=== PATIENT | female | born 1995 | race African-American/Black ===

== ENCOUNTER 2019-05-10 17:18 | Emergency (ER) | payer OTHER, SELFPAY ==
[2019-05-10] MEDS ORDERED: NA CHLORIDE 0.9% 1,000 ML ONE (17:51)
[2019-05-10] MEDS ORDERED: ACETAMINOPHEN 500 MG TAB ONE (17:51)
[2019-05-10 18:09] LABS: Urine Blood 1+ (NEG); Urine Glucose NEGATIVE (NEG); Urine Protein NEGATIVE (NEG); Urine Specific Gravity 1.025 (1.005-1.030); Urine pH 5.5 (5.0-7.0)
--- NOTE | 2019-05-10 18:42 | RAD REPORT ---
EXAM DESCRIPTION: US - Transvaginal OB - 05/10/2019 6:35 pm CLINICAL HISTORY: lower abdomen pain Pelvic pain COMPARISON: No comparisons FINDINGS: A single gestational sac is seen within the uterus. The shape of the sac is within normal limits for gestational age. Within the sac is a single pole with crown-rump length of 2.2 cm, c orrelating to estimated gestational age of 8 weeks 5 days. Estimated date of delivery is 12/15/2019. Heart rate is 179 BPM. The placenta is not yet developed due to early gestational age. The maternal adnexa and left ovary are within normal limits. Normal Doppler blood flow was demonstrat ed to the left ovary. The right ovary is obscured by bowel gas. IMPRESSION: Single live early intrauterine gestation with estimated gestational age of 8 weeks 5 day s, ADIS 12/15/2019. No unusual or unexpected finding.
[2019-05-10 18:45] LABS: BUN Blood Urea Nitrogen 9 mg/dL (7-18); Bicarbonate 25 mmol/L (21-32); Glucose Level 81 mg/dL (74-106); HCG, Quantitative 198767 mIU/mL (1-3); Potassium 3.3 mmol/L (3.5-5.1); Sodium Level 136 mmol/L (136-145)
[2019-05-10 19:02] LABS: Absolute Lymphocytes (CBC) 0.8 K/uL (0.7-4.9); Basophils % 0.4 % (0-1.3); Hematocrit 40.3 % (36.0-45.0); Lymphocytes % 9.5 % (15.3-44.8); MPV 9.5 fL (7.6-11.3)
[2019-05-10] MEDS ORDERED: POTASSIUM 25 MEQ EFFERV TAB ONE (19:49)
[2019-05-10 20:41] LABS: Urine Bacteria <20 /HPF (<20); Urine Culture Reflex Order NOT NEEDED; Urine Mucus 2+ /HPF (NONE SEEN)
--- NOTE | 2019-05-10 21:28 | ER ---
Nurse's Notes [facility] Name: Marla Snede Age: 24 yrs Sex: Female : 1995 Arrival Date: 05/10/2019 Time: 17:19 Bed 26 Private MD: Diagnosis: Threatened ; related conditions, unspecified, first trimester Presentation: 05/10 17:22 Presenting complaint: Abdominal pain and scant vaginal bleeding today. Pt is 10 weeks hb , ADIS 11/30/2019. Transition of care: patient was not received from another setting of care. Onset of symptoms was May 10, 2019. Risk Assessment: Do you want to hurt yourself or someone else? Patient reports no desire to harm self or others. Care prior to arrival: None. 17:22 Method Of Arrival: Ambulatory hb 17:22 Acuity: HALEIGH 3 hb 18:23 Initial Sepsis Screen: Does the patient meet any 2 criteria? No. Patient's initial la1 sepsis screen is negative. Does the patient have a suspected source of infection? No. Patient's initial sepsis screen is negative. DISPATCH SPECIALIST: 17:23 2, Full Term 1, Living 1 hb Historical: - Allergies: 17:23 No Known Allergies; hb - Home Meds: 17:23 None [Active]; hb - PMHx: 17:23 None; hb - PSHx: 17:23 None; hb - Immunization history:: Adult Immunizations up to date. - Social history:: Smoking status: Patient/guardian denies using tobacco. - Ebola Screening: : No symptoms or risks identified at this time. Screenin:23 Abuse screen: Denies threats or abuse. Nutritional screening: No deficits noted. la1 Tuberculosis screening: No symptoms or risk factors identified. Fall Risk None identified. Assessment: 18:22 General: Appears in no apparent distress. Behavior is calm, cooperative. Pain: la1 Complains of pain in right lower quadrant and left lower quadrant. Neuro: Level of Consciousness is awake, alert, obeys commands, Oriented to person, place, time, situation. Cardiovascular: Capillary refill < 3 seconds Patient's skin is warm and dry. Respiratory: Airway is patent Respiratory effort is even, unlabored, Respiratory pattern is regular, symmetrical, Breath sounds are clear bilaterally. GI: Bowel sounds present X 4 quads. Abd is soft and non tender X 4 quads. : No signs and/or symptoms were reported regarding the genitourinary system. Vital Signs: 17:23 BP 125 / 75; Pulse 95; Resp 16; Temp 97.8; Pulse Ox 100% on R/A; Weight 58.06 kg; hb Height 5 ft. 4 in. (162.56 cm); Pain 9/10; 19:00 BP 109 / 64; Pulse 56; Resp 15; Pulse Ox 100% ; rv 20:00 BP 112 / 76; Pulse 55; Resp 15; Pulse Ox 100% on R/A; rv 20:30 BP 111 / 64; Pulse 53; Resp 14; Pulse Ox 100% on R/A; rv 21:33 BP 114 / 63; Pulse 62; Resp 16; Temp 98(O); Pulse Ox 100% ; rv 17:23 Body Mass Index 21.97 (58.06 kg, 162.56 cm) hb ED Course: 17:19 Patient arrived in ED. as 17:22 Triage completed. hb 17:23 Arm band placed on. hb 17:25 Jefferson Ivan, LIZZY is Primary Nurse. la1 17:29 Doyle Goodwin PA is PHCP. cp 17:29 Jett Mckeon MD is Attending Physician. cp 18:02 Initial lab(s) drawn, by me, sent to lab. Inserted saline lock: 22 gauge in right lt1 antecubital area, using aseptic technique. 18:23 Patient has correct armband on for positive identification. la1 18:35 US Transvaginal Ob In Process Unspecified. EDMS 21:06 US Abdomen Limited: RUQ In Process Unspecified. EDMS 21:26 Michael Hunt MD is Referral Physician. cp 21:33 No provider procedures requiring assistance completed. IV discontinued, intact, rv bleeding controlled, No redness/swelling at site. Pressure dressing applied. Administered Medications: 18:00 Drug: NS 0.9% 1000 ml Route: IV; Rate: 1 bolus; Site: right antecubital; rv 19:39 Follow up: IV Status: Completed infusion; IV Intake: 1000ml rv 18:05 Drug: Tylenol 1000 mg Route: PO; la1 19:39 Follow up: Response: No adverse reaction; Marked relief of symptoms; Pain is decreased rv 19:58 Drug: Potassium Effervescent Tablet 50 mEq Route: PO; rv 21:32 Follow up: Response: No adverse reaction rv Intake: 19:39 IV: 1000ml; Total: 1000ml. rv Outcome: 21:27 Discharge ordered by . cp 21:33 Discharged to home ambulatory, with family. rv 21:33 Condition: good 21:33 Discharge instructions given to patient, Instructed on discharge instructions, follow up and referral plans. Demonstrated understanding of instructions, follow-up care. 21:34 Patient left the ED. rv Signatures: Dispatcher [employer] Vanessa Beltran Lee, RN RN la1 Doyle Goodwin PA PA Day Walker, RN RN Arun Lowe RN RN Ana María Vital lt1
--- NOTE | 2019-05-10 21:28 | EDPHYS ---
Physician Documentation [facility] Name: Marla Sneed Age: 24 yrs Sex: Female : 1995 Arrival Date: 05/10/2019 Time: 17:19 Bed 26 Private MD: ED Physician Jett Mckeon HPI: 05/10 17:45 This 24 yrs old Black Female presents to ER via Ambulatory with complaints of Abdominal cp Pain - 10 wks preg. 17:45 The patient presents with abdominal pain in the lower abdomen. cp 17:45 Onset: The symptoms/episode began/occurred this morning. cp 17:45 The symptoms do not radiate. Associated signs and symptoms: Pertinent positives: cp vaginal bleeding, Pertinent negatives: constipation, dysuria, fever, hematuria, vomiting. The symptoms are described as constant. Severity of pain: in the emergency department the pain is unchanged despite home interventions. TOP WADDY: 17:23 2, Full Term 1, Living 1 hb Historical: - Allergies: 17:23 No Known Allergies; hb - Home Meds: 17:23 None [Active]; hb - PMHx: 17:23 None; hb - PSHx: 17:23 None; hb - Immunization history:: Adult Immunizations up to date. - Social history:: Smoking status: Patient/guardian denies using tobacco. - Ebola Screening: : No symptoms or risks identified at this time. ROS: 18:00 Constitutional: Negative for body aches, chills, fever, poor PO intake. cp 18:00 Eyes: Negative for injury, pain, redness, and discharge. cp 18:00 ENT: Negative for drainage from ear(s), ear pain, sore throat, difficulty swallowing, difficulty handling secretions. 18:00 Cardiovascular: Negative for chest pain, palpitations. 18:00 Respiratory: Negative for cough, shortness of breath, wheezing. 18:00 Abdomen/GI: Positive for abdominal pain, Negative for nausea, vomiting, diarrhea, constipation, anorexia, black/tarry stool, rectal bleeding. 18:00 : Positive for vaginal bleeding, Negative for urinary symptoms. 18:00 Neuro: Negative for altered mental status, headache, syncope, weakness. 18:00 All other systems are negative. Exam: 18:05 Constitutional: The patient appears in no acute distress, alert, awake, non-toxic, well cp developed, well nourished. 18:05 Head/Face: Normocephalic, atraumatic. cp 18:05 Eyes: Periorbital structures: appear normal, Conjunctiva: normal, no exudate, no injection, Sclera: no appreciated abnormality, Lids and lashes: appear normal, bilaterally. 18:05 ENT: External ear(s): are unremarkable, Nose: is normal, Mouth: Lips: moist, Oral mucosa: pink and intact, moist, Posterior pharynx: is normal, airway is patent, no erythema, no exudate. 18:05 Chest/axilla: Inspection: normal, Palpation: is normal, no crepitus, no tenderness. 18:05 Cardiovascular: Rate: normal, Rhythm: regular. 18:05 Respiratory: the patient does not display signs of respiratory distress, Respirations: normal, no use of accessory muscles, no retractions, no splinting, no tachypnea, labored breathing, is not present, Breath sounds: are clear throughout, no decreased breath sounds, no stridor, no wheezing. 18:05 Abdomen/GI: Inspection: abdomen appears normal, Bowel sounds: active, all quadrants, Palpation: soft, in all quadrants, moderate abdominal tenderness, in the right upper quadrant, right lower quadrant and left lower quadrant, rebound tenderness, is not appreciated, voluntary guarding, is not appreciated. 18:05 Back: pain, is absent, ROM is normal, CVA tenderness, is absent. 18:05 Skin: no rash present. cp Vital Signs: 17:23 BP 125 / 75; Pulse 95; Resp 16; Temp 97.8; Pulse Ox 100% on R/A; Weight 58.06 kg; hb Height 5 ft. 4 in. (162.56 cm); Pain 9/10; 19:00 BP 109 / 64; Pulse 56; Resp 15; Pulse Ox 100% ; rv 20:00 BP 112 / 76; Pulse 55; Resp 15; Pulse Ox 100% on R/A; rv 20:30 BP 111 / 64; Pulse 53; Resp 14; Pulse Ox 100% on R/A; rv 21:33 BP 114 / 63; Pulse 62; Resp 16; Temp 98(O); Pulse Ox 100% ; rv 17:23 Body Mass Index 21.97 (58.06 kg, 162.56 cm) hb MDM: 17:29 Patient medically screened. cp 18:00 Differential diagnosis: Ectopic , non-specific abd pain, Ovarian Torsion, cp Pelvic Inflammatory Disease, Pyelonephritis, Tubal Ovarian Abcess, urinary tract infection. 21:25 Data reviewed: vital signs, nurses notes, lab test result(s), radiologic studies, cp ultrasound, and as a result, I will discharge patient. 21:25 Counseling: I had a detailed discussion with the patient and/or guardian regarding: the cp historical points, exam findings, and any diagnostic results supporting the discharge/admit diagnosis, the need for outpatient follow up, an OB/Gyne specialist, to return to the emergency department if symptoms worsen or persist or if there are any questions or concerns that arise at home. Response to treatment: the patient's symptoms have mildly improved after treatment, and as a result, I will discharge patient. 05/10 17:39 Order name: Quantitative Hcg; Complete Time: 18:49 05/10 18:50 Interpretation: Abnormal: HCGQ [id number]. 05/10 17:39 Order name: Abo/rh Typing; Complete Time: 19:46 05/10 20:27 Interpretation: Reviewed. 05/10 17:39 Order name: Basic Metabolic Panel; Complete Time: 18:49 05/10 20:26 Interpretation: Normal except: K 3.3. 05/10 17:39 Order name: CBC with Diff; Complete Time: 19:46 05/10 20:26 Interpretation: Normal except: SONU% 83.2; LYM% 9.5. 05/10 17:55 Order name: Urine Dipstick--Ancillary (enter results); Complete Time: 18:49 em1 05/10 17:55 Order name: Urine --Ancillary (enter results); Complete Time: 18:49 em1 05/10 17:39 Order name: Urine Test (obtain specimen); Complete Time: 18:03 05/10 17:39 Order name: IV Saline Lock; Complete Time: 18:03 05/10 17:40 Order name: US Transvaginal Ob; Complete Time: 18:49 05/10 19:46 Order name: Urine Microscopic Only; Complete Time: 20:43 05/10 20:36 Order name: US Abdomen Limited: RUQ 05/10 17:39 Order name: Labs collected and sent; Complete Time: 18:03 cp 05/10 17:39 Order name: NPO; Complete Time: 18:03 cp 05/10 17:39 Order name: Urine Dipstick-Ancillary (obtain specimen); Complete Time: 18:03 cp Administered Medications: 18:00 Drug: NS 0.9% 1000 ml Route: IV; Rate: 1 bolus; Site: right antecubital; rv 19:39 Follow up: IV Status: Completed infusion; IV Intake: 1000ml rv 18:05 Drug: Tylenol 1000 mg Route: PO; la1 19:39 Follow up: Response: No adverse reaction; Marked relief of symptoms; Pain is decreased rv 19:58 Drug: Potassium Effervescent Tablet 50 mEq Route: PO; rv 21:32 Follow up: Response: No adverse reaction rv Disposition: 05/10/19 21:27 Discharged to Home. Impression: Threatened , related conditions, unspecified, first trimester. - Condition is Stable. - Discharge Instructions: Abdominal Pain During , Threatened Miscarriage, Vaginal Bleeding During , First Trimester, Pelvic Rest. - Medication Reconciliation Form, Thank You Letter, Antibiotic Education, Prescription Opioid Use form. - Follow up: Michael Hunt MD; When: 2 - 3 days; Reason: Recheck today's complaints. - Problem is new. - Symptoms have improved. Addendum: 05/12/2019 15:35 Co-signature as Attending Physician, Jett Mckeon MD I agree with the assessment and t w4 plan of care. Signatures: Dispatcher [employer] EDAL Jefferson Ivan RN RN la1 Doyle Goodwin PA PA cp Day Black RN RN Jett Mckeon MD MD tw4 Arun Matute RN RN rv Corrections: (The following items were deleted from the chart) 05/10 21:34 21:27 05/10/2019 21:27 Discharged to Home. Impression: Threatened ; rv related conditions, unspecified, first trimester. Condition is Stable. Forms are Medication Reconciliation Form, Thank You Letter, Antibiotic Education, Prescription Opioid Use. Follow up: Michael Hunt; When: 2 - 3 days; Reason: Recheck today's complaints. Problem is new. Symptoms have improved. cp
[2019-05-10 21:53] VITALS: O2SAT 100
[2019-05-10 21:59] VITALS: BP 114/63; TEMP 98
--- NOTE | 2019-05-11 07:03 | RAD REPORT ---
EXAM DESCRIPTION: US - Abdomen Exam Limited - 05/10/2019 9:06 pm CLINICAL HISTORY: RUQ abdomen pain Preliminary findings provided at the time of the study. COMPARISON: No comparisons FINDINGS: No gallstones, sludge or other abnormalities within the gallbladder lumen. There is no wal l thickening or pericholecystic fluid. No common duct stone or biliary tree dilatation identified. IMPRESSION: Normal gallbladder and biliary tree ultrasound.
== END 2019-05-10 21:34 | disposition home or self-care (01) ==
LOC: ER 17:18
DX: O20.0 Threatened abortion (principal); Z3A.10 10 weeks gestation of pregnancy
CPT/HCPCS: 36415; 76705; 76817; 80048; 81003; 81015; 81025; 84702; 85025; 86900; 86901; 96360; 96361; 99284; J7030

== ENCOUNTER 2020-05-10 12:03 | Emergency (ER) | payer OTHER ==
--- OUTSIDE RECORDS SUMMARY | 2020-05-10 12:15 | XMS REPORT | Continuity of Care Document ---
:1995 Author Organization [facility] t Address [address] [place] [address] Care Team Providers Name Role Phone Tu REGALADO Attending Clinician Isaak GOULD, Alon Attending Clinician Problems This patient has no known problems. Allergies, Adverse Reactions, Alerts This patient has no known allergies or adverse reactions. Medications This patient has no known medications. Procedures This patient has no known procedures. Encounters Start End Encounter Admission Attending Care Care Encounter Source Date/Time Date/Time Type Type Clinicians Facility Department ID 2020-05-07 2020-05-07 Urgent Aditya Mae [id number] 17:36:07 17:51:07 Care Dona Pediatric [id number] s and [id number] Adult [id number] Primary [facility] 2020-04-15 2020-04-15 Office Lila Mulligan [id number] 14:44:02 16:12:30 Visit Alon Ceballos [id number] [place] [id number] Professkirk [id number] [address] Results This patient has no known results.
--- OUTSIDE RECORDS SUMMARY | 2020-05-10 12:16 | XMS REPORT | Summary of Care ---
:1995 Author Organization [facility] Address [address] [place] [id number] Care Team Providers Name Role Phone Doctor Unassigned, [place] [employer] Unavailable Pcp, Does Not Have A Primary Care Provider Reason for Visit Reason Comments INTRAUTERINE DEVICE Encounter Details Date Type Department Care Team Description 03/15/2020 Office Visit [facility] MulliganLila MD Encounter for insertion of mirena IUD (P rimary Dx); Healthcare- [address] Presence of of 52 mg levonor gestrel-releasing intrauterine device (IUD); [address] [place] [address] [address] female [address], [address] [place], [place] [id number] [phone] Allergies No Known Allergiesdocumented as of this encounter (statuses as of 03/15/2020) Medications Medication Sig Dispensed Refills Start Date End Date Status vitamin Take 1 tablet 100 tablet 3 12/06/2019 Active w/FA by mouth tabletIndication daily. s: Liveborn , of mccord , born in hospital by vaginal delivery, Late care affecting in third trimester, 39 weeks gestation of , Encounter for elective induction of labor ferrous sulfate Take 1 tablet 60 tablet 2 12/06/2019 Active 325 mg (65 mg by mouth 2 iron) (two) times tabletIndication daily. s: Liveborn , of mccord , born in hospital by vaginal delivery, Late care affecting in third trimester, 39 weeks gestation of , Encounter for elective induction of labor docusate calcium Take 1 60 capsule 1 12/06/2019 D iscontinued 240 mg capsule by 0 (Therapy capsuleIndicatio mouth once co mpleted) ns: Liveborn daily as infant, of needed for mccord Constipation. , born in hospital by vaginal delivery, Late care affecting in third trimester, 39 weeks gestation of , Encounter for elective induction of labor ibuprofen 600 mg Take 1 tablet 30 tablet 1 12/06/2019 03/15/20 2 Discontinued tabletIndication by mouth 0 (Th erapy s: Liveborn every 6 (six) comp leted) , of hours as mccord needed , born (Pain). Take in hospital by with food or vaginal milk. delivery, Late care affecting in third trimester, 39 weeks gestation of , Encounter for elective induction of labor Hospital, Clinic, or Ordered Dose Route Frequency Start Date End D ate Status Other Facility Administered Medication levonorgestreL 1 Device Intrauterine ONCE 03/15/2020 03/15/2020 Ended (MIRENA) IUD 1 Device documented as of this encounter (statuses as of 03/15/2020) Active Problems Problem Noted Date Presence of of 52 mg levonorgestrel-releasing intraute rine device (IUD) 03/15/2020 documented as of this encounter (statuses as of 03/15/2020) Resolved Problems Problem Noted Date Resolved Date 39 weeks gestation of 12/05/2019 01/09/20 20 Encounter for elective induction of labor 12/05/2019 01/09/2020 37 weeks gestation of 10/26/2019 12/05/19 20 Supervision of with insufficient care in 08/17/2019 10/12/2019 second trimester 27 weeks gestation of 08/17/2019 10/12/19 20 Placenta previa without hemorrhage, antepartum 08/17/2019 12/05/2019 Last Assessment & Plan: Resolved on 10/17/2019 USG 17 weeks gestation of 06/22/2019 08/17/19 20 Late care affecting in third trimester 01/09/2020 05/27/2017 06/22/2019 Postmaturity , 40-42 weeks gestation 05/27/2017 06/22/2019 Liveborn , of mccord , born in hospital by 05/27/2017 01/09/2020 vaginal delivery 40 weeks gestation of 05/26/2017 06/22/20 19 Supervision of normal first 11/17/2016 documented as of this encounter (statuses as of 03/15/2020) Immunizations Name Administration Dates Next Due Influenza Virus Vaccine Quad .5 mL IM 6+ MO 06/22/2019 Influenza Virus Vaccine Quad IM 3+ YRS 05/24/2017 TDAP 03/03/2017 TDAP (ADACEL) VACCINE 09/14/2019 documented as of this encounter Social History Tobacco Use Types Packs/Day Years Used Date Never Smoker Smokeless Tobacco: Never Used Alcohol Use Drinks/Week oz/Week Comments No 0 Standard drinks or equivalent 0.0 Sex Assigned at Date Recorded Not on file COVID-19 Exposure Response Date Recorded In the last month, have you been in contact with No / Unsure 03/15/2020 3:30 PM CDT someone who was confirmed or suspected to have Coronavirus / COVID-19? documented as of this encounter Last Filed Vital Signs Vital Sign Reading Time Taken Comments Blood Pressure 119/77 03/15/2020 4:05 PM CDT Pulse 62 03/15/2020 4:05 PM CDT Temperature 36.6 C (97.8 F) 03/15/2020 4:05 PM CDT Respiratory Rate 18 03/15/2020 4:05 PM CDT Oxygen Saturation - - Inhaled Oxygen Concentration - - Weight 60.3 kg (133 lb) 03/15/2020 4:05 PM CDT Height 162.6 cm (5' 4") 03/15/2020 4:05 PM CDT Body Mass Index 22.83 03/15/2020 4:05 PM CDT documented in this encounter Progress Notes Lila Mulligan MD - 03/15/2020 3:30 PM CDTIUD INSERTION PROCEDURE NOTE GC/CT within 3 months: No, sent today Recent H/H: 9.9/30.5 on 12/06/2019 UPT: negative Preoperative Diagnoses: Desires LARC The risks, benefits and alternatives were discussed. The patient voiced her understanding. She wished to proceed and an informed consent was obtained. Patient has been identified with name and and will be undergoing IUD placement. Indications for Mirena are: Desires LARC. Patient, procedure and site have been confirmed by the following clinicians: Dr. Mulligan. Timeout performed by Dr. Mulligan at 5:00 PM. Procedure: The patient is placed on the exam table in a dorsal lithotomy position. Vaginal speculuminserted. The cervix was cleansed with Betadine x 3. The single tooth tenaculum was placed on the anterior lip of the uterus. Uterus sounded to 8 cm. IUD inserted without difficulty. String visible and trimmed to 3 cm. The patient tolerated the procedure well and there were no complications. Post-procedure instructions given. Patient verbalized understanding. Findings Successful placement of Mirena IUD, see USG report Assessment Successful placement of Mirena IUD, ultrasound shows intrauterine fundal position. Plan Encounter for insertion of Mirena IUD Comment: Reviewed counseling as below. Patient expressed understanding of risks including that of uterine perforation, IUD malposition and expulsion, along with risk of migration of IUD into the abdominal cavity requiring surgery for removal. These risks could result in additional expense to the patient. The patient desires to proceed with IUD insertion. Negative UPT and no recent unprotected intercourse. Understands need to use back up method for contraception for next 7 days. Understands needs replacement or removal in 5 years. Plan: TEST, US METAL TURNER TRANSVAGINAL (In Clinic) Presence of of 52 mg levonorgestrel-releasing intrauterine device (IUD) Comment: String check in 4 weeks. Strings trimmed to 3 cm. Plan: US METAL TURNER TRANSVAGINAL (In Clinic) - confirmed placement of IUD with ultrasound. Return to clinic in 4 week string check. Discussed treatment options. Medications as ordered. Reviewed patient instructions and provided printed copy. Mirena Lot #: [id number] Expiration date: 12/2021 Lila Mulligan MD #[id number] 03/15/2020 5:00 PM documented in this encounter Plan of Treatment Date Type Specialty Care Team Description 04/15/2020 Office Visit Obstetrics & Gynecology Greg Mulligan MD [address] [place] [address] [address] [place] [address] [phone] Name Type Priority Associated Diagnoses Order S chedule GC & CHLAMYDIA AMPLIFIED LAB Routine Encounter for in sertion of Ordered: 03/15/2020 ASSAY mirena IUD Health Maintenance Due Date Last Done Comments MENINGOCOCCAL B VACCINES (1 2007 of 2 - Risk Bexsero 2-dose series) HPV VACCINES (1 - 2-dose 2008 series) INFLUENZA VACCINE (#1) 2020 06/22/2019, 05/24/2017 Depression Screening 07/20/2020 07/20/2019 CHLAMYDIA SCREENING 11/22/2020 11/23/2019, 07/20/2019, 06/22/2019, Additional history exists PAP SMEAR 06/22/2022 06/22/2019 DTaP,Tdap,and Td Vaccines (3 09/14/2029 09/14/2019, 017 - Td) MENINGOCOCCAL VACCINE Aged Out No longer eligible based on patient 's age to complete this topic PNEUMOCOCCAL 0-64 YEARS Aged Out No longe r eligible COMBINED SERIES based on patient 's age to complete this topic documented as of this encounter Procedures Procedure Name Priority Date/Time Associated Diagnosis Comme nts POCT TEST Routine 03/15/2020 Encounter for inserti on Results for this of mirena IUD procedure are in the results section . documented in this encounter Results POCT TEST (03/15/2020) Pathologist Sig nature POCT PREG Negative On board controls acceptable Yes with C Line POCT PREG LOT # POCT PREG TEST DATE Specimen Urine - URINE, CLEAN CATCH documented in this encounter Visit Diagnoses Diagnosis Encounter for insertion of mirena IUD - Primary Encounter for insertion of intrauterine contraceptive device Presence of of 52 mg levonorgestrel-rele asing intrauterine device (IUD) Encounter for female control Other specified contraceptive management documented in this encounter Administered Medications Medication Order MAR Action Action Date Dose Rate Site levonorgestreL (MIRENA) IUD 1 Given 03/15/2020 5:02 PM 1 Device Abdomen Device CDT 1 Device, Intrauterine, ONCE, 1 dose, Wed03/15/20 at 1800, Routine documented in this encounter Insurance Payer Benefit Plan / Subscriber ID Effective Phone Address T [facility] [id number] 2016-Fam[address] P.OSally SANCHEZ Medic aid HEALTH CHOICE - HE[place] [id number] 1 MANAGED MEDICAID [place], [place] [phone] documented as of this encounter Advance Directives Name Relationship Healthcare Agent Relationship Co mmunication Rosario Montelongo Mother Health Care Agent [phone] ( Mobile)
--- OUTSIDE RECORDS SUMMARY | 2020-05-10 12:16 | XMS REPORT | Summary of Care ---
:1995 Author Organization [facility] Address [address] [place] [address] Care Team Providers Name Role Phone Doctor Unassigned, [place] Insurance Hmo Unavailable Pcp, Does Not Have A Primary Care Provider Reason for Visit Reason Comments INTRAUTERINE DEVICE Encounter Details Date Type Department Care Team Description 03/15/2020 Office Visit [facility] Women's MulliganLila MD Encounter for insertion of mirena IUD (P rimary Dx); Healthcare- [address] Presence of of 52 mg levonor gestrel-releasing intrauterine device (IUD); [address] [place] [address] [address] female [address], [address] [place], [place] [phone] Allergies No Known Allergiesdocumented as of this [...] removal in 5 years. Plan: TEST, US TASTE TESTER TRANSVAGINAL (In Clinic) Presence of of 52 mg levonorgestrel-releasing intrauterine device (IUD) Comment: String check in 4 weeks. Strings trimmed to 3 cm. Plan: US TASTE TESTER TRANSVAGINAL (In Clinic) - confirmed placement of IUD with ultrasound. Return to clinic in 4 week string check. Discussed treatment options. Medications as ordered. Reviewed patient instructions and provided printed copy. Mirena Lot #: [id number] Expiration date: 12/2021 Lila Mulligan MD #[id number] 03/15/2020 5:00 PM documented in this encounter Plan of Treatment Date Type Specialty Care Team Description 04/15/2020 Office Visit Obstetrics & Gynecology Greg Mulligan MD [address] [place] [address] DR. Briceno [address] [place] [address] [phone] Name Type Priority Associated Diagnoses Order S [...] / Subscriber ID Effective Phone Address T [employer] [id number] 2016-Familia P.OSally SANCHEZ Medic aid HEALTH CHOICE - HEALTH CHOICE nt [id number] 1 MANAGED MEDICAID [place], [place] MED[place]ID [address] documented as of this encounter Advance Directives Name Relationship Healthcare Agent Relationship Co mmunication Rosario Montelongo Mother Health Care Agent [phone] ( Mobile)
--- OUTSIDE RECORDS SUMMARY | 2020-05-10 12:16 | XMS REPORT | Summary of Care ---
:1995 Author Organization [facility] Address [address] [place] [address] Care Team Providers Name Role Phone Doctor Unassigned, [place] Insurance Hmo Unavailable Pcp, Does Not Have A Primary Care Provider Reason for Visit Reason Comments Follow-up string check Encounter Details Date Type Department Care Team Description 04/15/2020 Office Visit [facility] Women's MulliganLila MD Family planning, IUD (intrauterine devic e) check/reinsertion/removal (Primary Dx); Healthcare- [address] Flu vaccine need [address] [place] [address] [address] Saldaña, [address] [place], [place] [phone] Allergies No Known Allergiesdocumented as of this encounter (statuses as of 04/15/2020) Medications Medication Sig Dispensed Refills Start Date End Date Status vitamin w/FA Take 1 tablet by 100 tablet 3 12/06/2019 Active tabletIndications: mouth daily. Liveborn infant, of [place] , born in hospital by vaginal delivery, Late care affecting in third trimester, 39 weeks gestation of , Encounter for elective induction of labor ferrous sulfate 325 mg Take 1 tablet by 60 tablet 2 12/06/2019 Active (65 mg iron) mouth 2 (two) tabletIndications: times daily. Liveborn , of [place] , born in hospital by vaginal delivery, Late care affecting in third trimester, 39 weeks gestation of , Encounter for elective induction of labor documented as of this encounter (statuses as of 04/15/2020) Active Problems Problem Noted Date Presence of of 52 mg levonorgestrel-releasing intraute rine device (IUD) 03/15/2020 documented as of this encounter (statuses as of 04/15/2020) Resolved Problems Problem Noted Date Resolved Date [...] as of this encounter (statuses as of 04/15/2020) Immunizations Name Administration Dates Next Due Influenza Virus Vaccine Quad .5 mL IM 6+ MO 04/15/2020, 11/2018 Influenza Virus Vaccine Quad IM 3+ YRS [...] been in contact with No / Unsure 04/15/2020 2:43 PM CDT someone who was confirmed or suspected to have Coronavirus / COVID-19? documented as of this encounter Last Filed Vital Signs Vital Sign Reading Time Taken Comments Blood Pressure 124/70 04/15/2020 3:13 PM CDT Pulse 71 04/15/2020 3:13 PM CDT Temperature 36.9 C (98.4 F) 04/15/2020 3:13 PM CDT Respiratory Rate 18 04/15/2020 3:13 PM CDT Oxygen Saturation - - Inhaled Oxygen Concentration - - Weight 57.2 kg (126 lb) 04/15/2020 3:13 PM CDT Height 167.6 cm (5' 6") 04/15/2020 3:13 PM CDT Body Mass Index 20.34 04/15/2020 3:13 PM CDT documented in this encounter Progress Notes Lila Mulligan MD - 04/15/2020 3:00 PM CDT CC: IUD string check HPI: Marla Sneed is a 24 year old female IUD placed on 03/15/2020. LMP 04/14/2020. Normal amount of bleeding with period. Able to feel strings after menses. No discomfort with sexual intercourse. ROS: Constitutional: Negative fever, chills Cardiovascular: Negative chest pain Respiratory: Negative SOB Gastrointestinal: Negative abdominal pain, nausea, vomiting Gynecologic: As above PE: BP: (124)/(70) Temp: [36.9 C (98.4 F)] Temp source: Oral (04/15 1513) Pulse: [71] Resp: [18] SpO2: -- Height: [5' 6" (167.6 cm)] Weight: [126 lb (57.2 kg)] BMI (calculated): [20.34] NAD RRR Breathing unlabored Soft, NTTP Speculum exam revealed IUD strings at the external os A/P: IUD (intrauterine device) in place (primary encounter diagnosis) Comment: Self string check reviewed Plan: Return for WWE 6 months and string check Flu vaccine need Plan: FLU VACC([id number]), 6+ MONTHS, IM, QUAD (FLUZONE/FLULAVAL/FLUARIX); Patient received flu shot today Scribe's Attestation Frankie Farley , am scribing for, and in the presence of, Lila Mulligan MD who performed the services described here-in. Frankie Rodriguez, April 15, 2020, 2:59 PM Physician's Attestation I have seen and examined the patient and agreed with the note above Lila Mulligan MD 04/15/2020 6:20 PM documented in this encounter Plan of Treatment Date Type Specialty Care Team Description 10/14/2020 Office Visit Obstetrics & Gynecology Greg Mulligan MD [address] [place] [address] DR. Briceno [address] [place], [place] [address] [phone] Health Maintenance Due Date Last Done Comments MENINGOCOCCAL B VACCINES (1 2007 of 2 - Risk Bexsero 2-dose series) HPV VACCINES (1 - 2-dose 2008 series) INFLUENZA VACCINE (#1) 2020 06/22/2019, 05/24/2017 Depression Screening 07/20/2020 07/20/2019 CHLAMYDIA SCREENING 03/15/2021 03/15/2020, 11/23/2019, 07/20/2019, Additional history exists PAP SMEAR 06/22/2022 06/22/2019 [...] Name Priority Date/Time Associated Diagnosis Comme nts FLU VACC ([id number]), Routine 04/15/2020 4:03 PM CDT Flu vacc ine need 6+ MONTHS, IM, QUAD documented in this encounter Results Not on filedocumented in this encounter Visit Diagnoses Diagnosis Family planning, IUD (intrauterine devic e) check/reinsertion/removal - Primary Surveillance of previously prescribed in trauterine contraceptive device Flu vaccine need Need for prophylactic vaccination and in oculation against influenza documented in this encounter Insurance Payer Benefit Plan / Subscriber ID Effective Phone Address T [facility] [id number] 2016-Prese [address] Medic aid HEALTH CHOICE - HEALTH CHOICE nt [id number] 1 MANAGED MEDICAID [place], [place] MEDICAID [phone] documented as of this encounter Advance Directives Name Relationship Healthcare Agent Relationship Co mmunication Rosario Montelongo Mother Health Care Agent [phone] ( Mobile)
--- OUTSIDE RECORDS SUMMARY | 2020-05-10 12:16 | XMS REPORT | Summary of Care ---
:1995 Author Organization [facility] Address [address] [place] [address] Care Team Providers Name Role Phone Doctor Unassigned, [place] Insurance Hmo Unavailable Pcp, Does Not Have A Primary Care Provider Encounter Details Date Type Department Care Team Description 03/15/2020 Orders Only [email or web address] Doctor Unassigned, No [address] [facility] [place] [address] [address] [place] [address] Allergies No Known Allergiesdocumented as of this encounter (statuses as of 03/21/2020) Medications Medication Sig Dispensed Refills Start Date [...] mouth 2 (two) tabletIndications: times daily. Liveborn infant, of [place] , born in hospital by vaginal delivery, Late care affecting in third trimester, 39 weeks gestation of , Encounter for elective induction of labor documented as of this encounter (statuses as of 03/21/2020) Active Problems Problem Noted Date Presence of of 52 mg levonorgestrel-releasing intraute rine device (IUD) 03/15/2020 documented as of this encounter (statuses as of 03/21/2020) Resolved Problems Problem Noted Date Resolved Date [...] as of this encounter (statuses as of 03/21/2020) Immunizations Name Administration Dates Next Due Influenza [...] of this encounter Last Filed Vital Signs Not on filedocumented in this encounter Plan of Treatment Date Type Specialty Care Team Description 04/15/2020 Office Visit Obstetrics & Gynecology Greg Mulligan MD [address] [place] [address] [address]. [address] [place] [address] [phone] Health Maintenance Due Date Last Done Comments [...] Name Priority Date/Time Associated Diagnosis Comme nts SURVEY DIRECTOR CLINIC ULTRASOUND Routine 03/15/2020 12:01 AM CDT documented in this encounter Results Not on filedocumented in this encounter Insurance Payer Benefit Plan / Subscriber ID Effective Phone Address [facility] [id number] 2016-Familia [address] Medic aid HEALTH CHOICE - HEALTH CHOICE nt [id number] 1 MANAGED MEDICAID [place], [place]ICAID [phone] documented as of this encounter Advance Directives Name Relationship Healthcare Agent Relationship Co mmunication Rosario Montelongo Mother Health Care Agent [phone] ( Mobile)
--- OUTSIDE RECORDS SUMMARY | 2020-05-10 12:16 | XMS REPORT | Summary of Care ---
:1995 Author Organization [facility] Address [address] [place] [address] Care Team Providers Name Role Phone Doctor Unassigned, [place] Insurance Hmo Unavailable Pcp, Does Not Have A Primary Care Provider Reason for Visit Reason Comments Assessment Encounter Details Date Type Department Care Team Description 03/22/[address] [facility] Women's UribeLila MD Assessment Healthcare- [address] [facility] [address] [place] [address] [place] [address] [phone] Allergies No Known Allergiesdocumented as of this encounter (statuses as of 03/26/2020) Medications Medication Sig Dispensed Refills Start Date End Date Status vitamin w/FA Take 1 tablet by 100 tablet 3 12/06/2019 Active tabletIndications: mouth daily. Liveborn , of [place] , born in hospital by vaginal delivery, Late care affecting in third trimester, 39 weeks gestation of , Encounter for elective induction of labor ferrous sulfate 325 mg Take 1 tablet by 60 tablet 2 12/06/2019 Active (65 mg iron) mouth 2 (two) tabletIndications: times daily. Liveborn infant, of [place] , born in hospital by vaginal delivery, Late care affecting in third trimester, 39 weeks gestation of , Encounter for elective induction of labor documented as of this encounter (statuses as of 03/26/2020) Active Problems Problem Noted Date Presence of of 52 mg levonorgestrel-releasing intraute rine device (IUD) 03/15/2020 documented as of this encounter (statuses as of 03/26/2020) Resolved Problems Problem Noted Date Resolved Date [...] , 40-42 weeks gestation 05/27/2017 06/22/2019 Liveborn infant, of [place] , born in hospital by 05/27/2017 01/09/2020 vaginal delivery 40 weeks gestation of 05/26/2017 06/22/20 19 Supervision of normal first 11/17/2016 documented as of this encounter (statuses as of 03/26/2020) Immunizations Name Administration Dates Next Due Influenza [...] Signs Not on filedocumented in this encounter Miscellaneous Notes Telephone Encounter - Katie Christian RN - 03/26/2020 9:29 AM CDTNo answer, left message for patient to return call. Katie Christian RN 03/26/2020 9:29 AM Telephone Encounter - Arnol Thu Jimmy - 03/22/2020 11:48 AM CDTPt states she has a knot on wrist area and would like to speak to DR URIBE. Pt was offered appointmentbut refused until she talks to DR URIBE first she stated. documented in this encounter Plan of Treatment Date Type Specialty Care Team Description 04/15/2020 Office Visit Obstetrics & Gynecology Greg Uribe MD [address] [place] [address] [place] [address] Health Maintenance Due Date Last Done Comments [...] this topic documented as of this encounter Results Not on filedocumented in this encounter Insurance Payer Benefit Plan / Subscriber ID Effective Phone Address [employer] [facility] [id number] 2016-Familia [address] Medic aid HEALTH CHOICE - HEALTH CHOICE nt [phone] 1 MANAGED MEDICAID [place] [phone] documented as of this encounter Advance Directives Name Relationship Healthcare Agent Relationship Co mmunication Rosario Montelongo Mother Health Care Agent [phone] ( Mobile)
--- OUTSIDE RECORDS SUMMARY | 2020-05-10 12:16 | XMS REPORT | Summary of Care ---
:1995 Author Organization [facility] Address [address] [place] [address] Care Team Providers Name Role Phone Doctor Unassigned, [place] Insurance Hmo Unavailable Pcp, Does Not Have A Primary Care Provider Reason for Visit Reason Comments Follow-up string check Encounter Details Date Type Department Care Team Description 04/15/2020 Office Visit [facility] Women's MulliganLila MD Family planning, IUD (intrauterine devic e) check/reinsertion/removal (Primary Dx); Healthcare- [address] Flu vaccine need [address] [place] [address] [address]. Saldaña, [address] [place], [place] [address] [phone] Allergies No Known Allergiesdocumented as of this [...] string check Flu vaccine need Plan: FLU VACC([id number]), 6+ MONTHS, IM, QUAD (FLUZONE/FLULAVAL/FLUARIX); Patient received [...] Visit Obstetrics & Gynecology Greg Mulligan MD [address] [place] [address] [address]. B[address]eno [address] [place], [place] [address] [phone] Health Maintenance Due Date Last Done Comments [...] Date/Time Associated Diagnosis Comme nts FLU VACC ([id number]), Routine 04/15/2020 4:03 PM CDT Flu vacc [...] / Subscriber ID Effective Phone Address T [facility] [id number] 2016-Prese [address] Medic aid HEALTH CHOICE - HEALTH CHOICE nt [phone] 1 MANAGED MEDICAID [place], [place] [phone] documented as of this encounter Advance Directives Name Relationship Healthcare Agent Relationship Co mmunication Rosario Montelongo Mother Health Care Agent [phone] ( Mobile)
--- OUTSIDE RECORDS SUMMARY | 2020-05-10 12:17 | XMS REPORT | Summary of Care ---
:1995 Author Organization [facility] Address [address] [place] [id number] Care Team Providers Name Role Phone Doctor Unassigned, [place] [employer] Unavailable Pcp, Does Not Have A Primary Care Provider Reason for Visit Reason Comments BUMP right wrist. Encounter Details Date Type Department Care Team Description 05/07/2020 Urgent Care [facility] Urgent Unknown, Attending Andre see cyst Care, Dona Mon, [facility] [address] [address] (Primary Dx) [address] [id number] Allergies No Known Allergiesdocumented as of this encounter (statuses as of 05/07/2020) Medications Medication Sig Dispensed Refills Start Date [...] as of this encounter (statuses as of 05/07/2020) Active Problems Problem Noted Date Presence of of 52 mg levonorgestrel-releasing intraute rine device (IUD) 03/15/2020 documented as of this encounter (statuses as of 05/07/2020) Resolved Problems Problem Noted Date Resolved Date 39 weeks gestation of 12/05/2019 01/09/20 Encounter for elective induction of labor 12/05/2019 01/09/2020 37 weeks gestation of 10/26/2019 12/05/19 20 Supervision of with insufficient care in 08/17/2019 10/12/2019 second trimester 27 weeks gestation of 08/17/2019 10/12/19 Placenta previa without hemorrhage, antepartum 08/17/2019 12/05/2019 Last Assessment & Plan: Resolved on 10/17/2019 USG 17 weeks gestation of 06/22/2019 08/17/19 Late care affecting in third trimester 01/09/2020 05/27/2017 06/22/2019 Postmaturity , 40-42 weeks gestation 05/27/2017 06/22/2019 Liveborn , of [place] , born in hospital by 05/27/2017 01/09/2020 vaginal delivery 40 weeks gestation of 05/26/2017 06/22/20 19 Supervision of normal first 11/17/2016 documented as of this encounter (statuses as of 05/07/2020) Immunizations Name Administration Dates Next Due Influenza [...] been in contact with No / Unsure 05/07/2020 5:45 PM CDT someone who was confirmed or suspected to have Coronavirus / COVID-19? documented as of this encounter Last Filed Vital Signs Vital Sign Reading Time Taken Comments Blood Pressure 119/66 05/07/2020 5:46 PM CDT Pulse 58 05/07/2020 5:46 PM CDT Temperature 36.9 C (98.4 F) 05/07/2020 5:46 PM CDT Respiratory Rate 18 05/07/2020 5:46 PM CDT Oxygen Saturation 99% 05/07/2020 5:46 PM CDT Inhaled Oxygen Concentration - - Weight 57.5 kg (126 lb 12.8 oz) 05/07/2020 5:46 PM CDT Height 162.6 cm (5' 4") 05/07/2020 5:46 PM CDT Body Mass Index 21.77 05/07/2020 5:46 PM CDT documented in this encounter Patient Instructions Patient InstructionsElmajaysonDona, FABRICIO - 05/07/2020 5:45 PM CDT Patient Education Ganglion Cyst: Hand A ganglion cyst is a firm, fluid-filled lump that can suddenly appear on the front or back of the wrist or at the base of a finger. They are the most common type of mass or lump on the hand. These cysts grow from normal tissue in the wrist and fingers and range in size from a pea to a peach pit. Although ganglion cysts are common, they dont spread, and they dont become cancerous. They can occurafter an injury, but many times it isnt known why they grow. Ganglion cysts can change in size, and may go away on their own. What are the symptoms of a ganglion cyst? A ganglion cyst is sometimes painful, especially when it first occurs. Constantly using your hand orwrist can make the cyst enlarge and hurt more. Some hand and wrist movements, such as grasping things, may also be difficult. How does a ganglion cyst develop? Your wrist and hand are made up of many small bones that meet at joints. Tendons attach muscles to the bones at the joints. The tendons allow the joints to bend and straighten. Both tendons and joints are lined with tissue called synovium. This tissue makes a thick fluid that keeps the joints and tendons moving easily. Sometimes the tissue balloons out from the joint or tendons and forms a cyst. As the cyst fills with fluid and grows, it appears as a lump you can feel. Where do ganglion cysts occur? A ganglion cyst can occur anywhere on the hand near a joint. Cysts most commonly appear on the back or palm side of the wrist, or on the palm at the base of a finger. Your doctor can usually diagnose acyst by examining the lump. He or she may draw off a little fluid and order an X-ray to rule out other problems. How is a ganglion cyst treated? Your healthcare provider may just watch your ganglion cyst. Many shrink and become painless without treatment. Some disappear altogether. If the cyst is unsightly or painful, or makes it hard for you to use your hand, your healthcare provider can treat it or, if needed, remove it surgically. Nonsurgical treatment To shrink the cyst, your provider may remove (aspirate) the fluid with a needle. If the cyst hurts, your provider may also give you an injection of an anti- inflammatory, such as cortisone, to relieve the irritation. Your hand may then be wrapped to help keep the cyst from recurring. Surgery If the cyst reappears after treatment, your healthcare provider may remove it surgically. A section of the tissue that lines the joint or tendon is removed along with the cyst. This helps prevent another cyst from forming, although recurrence of the cyst is still possible after surgery.Usually, onlyyour hand or arm is numbed, and you can go home a few hours after surgery. Your hand may be in a splint for several days. You can usually go back to your normal activities 2 to6 weeks after surgery. Digital Assent reviewed this educational content on 04/18/201919996494-1985 [employer]. [address] [place] [address], [place] [address]. All rights reserved. This information is not intended as a substitute for professional medical care. Always follow your healthcare professional's instructions. documented in this encounter Progress Notes Dona Mae FNP - 05/07/2020 5:45 PM CDT Cc: BUMP (right wrist. ) Marla Sneed is a 25 year old female. Patient reports a knot to her right hand for 2 months off and on. Patient denies injury to hand, denies repetitive motion of her hand. No motor or sensory change. No pain at present. HPI Allergies Marla has No Known Allergies. Medications Outpatient Medications Prior to Visit Medication Sig Dispense Refill ferrous sulfate 325 mg (65 mg iron) tablet Take 1 tablet by mouth 2 (two) times daily. 60 tablet2 vitamin w/FA tablet Take 1 tablet by mouth daily. 100 tablet 3 No facility-administered medications prior to visit. Histories No past medical history on file. Past Surgical History: Procedure Laterality Date KELOID EXCISION 2012 right shoulder Social History Socioeconomic History Marital status: Single Spouse name: Not on file Number of children: Not on file Years of education: Not on file Highest education level: Not on file Occupational History Not on file Social Needs Financial resource strain: Not on file Food insecurity Worry: Not on file Inability: Not on file Transportation needs Medical: Not on file Non-medical: Not on file Tobacco Use Smoking status: Never Smoker Smokeless tobacco: Never Used Substance and Sexual Activity Alcohol use: No Alcohol/week: 0.0 standard drinks Drug use: No Sexual activity: Yes Partners: Male Lifestyle Physical activity Days per week: Not on file Minutes per session: Not on file Stress: Not on file Relationships Social connections Talks on phone: Not on file Gets together: Not on file Attends baptist service: Not on file Active member of club or organization: Not on file Attends meetings of clubs or organizations: Not on file Relationship status: Not on file Intimate partner violence Fear of current or ex partner: Not on file Emotionally abused: Not on file Physically abused: Not on file Forced sexual activity: Not on file Other Topics Concern Not on file Social History Narrative Denies domestic violence or abuse Family History Problem Relation Age of Onset No Significant Medical Problems Mother No Significant Medical Problems Father No Significant Medical Problems Sister No Significant Medical Problems Brother Cancer Maternal Aunt No Significant Medical Problems Maternal Uncle No Significant Medical Problems Paternal Aunt Diabetes Maternal Grandmother Cancer Maternal Grandfather No Significant Medical Problems Paternal Grandmother No Significant Medical Problems Paternal Grandfather Breast Cancer Maternal Aunt Review of Systems ROS: Constitutional: denies appetite changes - denies chills, denies fatigue, denies fever , denies malaise , denies sweats, denies weakness, denies weight gain and denies weight loss. Eyes: denies blurry vision, denies decreased vision, denies eye pain, denies loss of vision and denies photophobia. Ears: negative for ear pressure or fullness, no ear pain, negative for difficulty hearing or ear drainage Nose/Sinuses: denies congestion, denies facial pain, denies itching, denies postnasal drip and denies rhinorrhea . Mouth/Throat: denies dysphagia, denies hoarseness, denies mouth pain and denies sore throat. Neck: denies pain, denies swollen glands Cardiovascular: denies chest pain and denies palpitations. Respiratory: denies chest congestion, denies cough , denies dyspnea on exertion and denies shortnessof breath. Gastrointestinal: denies abdominal pain, denies constipation, denies diarrhea and denies vomiting. Genitourinary: denies burning, denies dysuria and denies hematuria. Musculoskeletal: denies back pain, denies joint pain, denies joint swelling, denies muscle cramps and denies muscle pain. Skin: negative. Neuro: negative. Hem/Lymph: negative. Physical Exam BP 119/66 | Pulse 58 | Temp 36.9 C (98.4 F) (Oral) | Resp 18 | Ht 5' 4" (1.626 m) | Wt 126 lb 12.8 oz (57.5 kg) | LMP 2020 | SpO2 99% | BMI 21.77 kg/m PHYSICAL EXAM Appearance: patient alert and in no acute distress Head: normocephalic and atraumatic Eye: normal external eye, corneas clear, conjunctiva and sclera normal and pupils equal, round, reactive to light and accomodation Cardiovascular: regular rate and rhythm, no murmur Respiratory: clear to auscultation and percussion, bilaterally Lymphatic: non-palpable nodes in neck, clavicular, axillary or inguinal regions Extremities: peripheral pulses and reflexes normal, no edema Neurologic: normal gait Psychiatric: alert, oriented, with appropriate affect Skin: skin color, texture and turgor are normal; no bruising, rashes or lesions noted Right hand dorsum with pea size cystic mass noted overlying the 4th metacarpal proximally, non tender to palpation, motor 5/5, sensory wnl Assessment/Plan 1. Ganglion cyst Supportive care Refer to educational handout Management plans discussed with patient. All potential side effects of medication discussed. Patient verbalizes understanding. Patient advised to return to clinic or to the nearest Emergency room should conditions worsen. We recommend you call your primary care provider for an appointment in 1-2 days. If the office is closed and you and you are feeling markedly worse, the [facility] urgent care clinic is open weeknights from 6 pm to 10 pm and on weekends, or you can the [facility] access center for advice 24 hours a day. Yamile Perdomo - 05/07/2020 5:45 PM CDTSmarli Sneed is a 25 year old female complains of small bump to right wrist X 2 months. Patient states it comes and goes and when it comes it is painful with slight redness and limited motion to thewrist. Patient denies taking anything for pain. Patient denies any pain today but when it comes it is a 6/10. documented in this encounter Plan of Treatment Date Type Specialty Care Team Description 10/14/2020 Office Visit Obstetrics & Gynecology Greg Mulligan MD [address] [place] [address] DR. Briceno [address] [place] [phone] Health Maintenance Due Date Last Done Comments MENINGOCOCCAL B VACCINES (1 2007 of 2 - Risk Bexsero 2-dose series) HPV VACCINES (1 - 2-dose 2008 series) Depression Screening 07/20/2020 07/20/2019 CHLAMYDIA SCREENING 03/15/2021 03/15/2020, 11/23/2019, 07/20/2019, Additional history exists PAP SMEAR 06/22/2022 06/22/2019 DTaP,Tdap,and Td Vaccines (3 09/14/2029 09/14/2019, 017 - Td) INFLUENZA VACCINE Completed 04/15/2020, 06/22/2019, 05/24/2017 PNEUMOCOCCAL 0-64 YEARS Aged Out No longe r eligible COMBINED SERIES based on patient 's age to complete this topic documented as of this encounter Results Not on filedocumented in this encounter Visit Diagnoses Diagnosis Ganglion cyst - Primary Ganglion, unspecified documented in this encounter Insurance Payer Benefit Plan / Subscriber ID Effective Phone Address T e Group [facility] [id number] 2016-Familia P.Tabitha SANCHEZ Medic aid HEALTH CHOICE - [place] [id number] 1 MANAGED MEDICAID [place], [place] MED[place] [id number] documented as of this encounter Advance Directives Name Relationship Healthcare Agent Relationship Co mmunication Rosario Montelongo Mother Health Care Agent [phone] ( Mobile)
--- NOTE | 2020-05-10 13:59 | RAD REPORT ---
EXAM DESCRIPTION: RAD - Wrist Right 3 View - 05/10/2020 1:50 pm CLINICAL HISTORY: intermittent pain, "bump", area of concern not further localized COMPARISON: <Comparisons> FINDINGS: No fracture is identified. There is no dislocation or periosteal reaction noted. Epiphyses and growth plates are normal in appearance. No foreign body or calcification in the soft tissues. No focal soft tissue mass identifiable. IMPRESSION: Negative right wrist examination. Focal soft tissue mass not identifiable. No calcification or foreign body in the soft tissues.
[2020-05-10] MEDS ORDERED: IBUPROFEN 400 MG TAB ONE (14:26)
[2020-05-10] MEDS ORDERED: IBUPROFEN 200 MG TAB PO ONE (14:26)
--- NOTE | 2020-05-10 14:49 | RAD REPORT ---
EXAM DESCRIPTION: US - Extremity Nonvascular Limited - 05/10/2020 2:37 pm CLINICAL HISTORY: knot right wrist;Pain COMPARISON: No comparisons FINDINGS: Limited soft tissue sonography performed of a palpable mass at the right wrist. A 7 x 3 x 6 mm oval hypoechoic mass is present in the soft tissues correlate to the palpable abnormal ity. Long axis is parallel to the bones. Ganglion cyst is the most likely etiology. IMPRESSION: A 7 mm oval hypoechoic mass is identified as a correlate to the palpable abnormality. Ga nglion cyst is most likely.
--- NOTE | 2020-05-10 14:58 | EDPHYS ---
Physician Documentation [facility] Name: Marla Sneed Age: 25 yrs Sex: Female : 1995 Arrival Date: 05/10/2020 Time: 12:06 Bed 6 Private MD: ED Physician Delonte Gurrola HPI: 05/10 15:17 This 25 yrs old Black Female presents to ER via Ambulatory with complaints of Wrist kb Injury, Knot On Wrist. 15:17 The patient or guardian reports pain. The complaints affect the right wrist diffusely. kb Context: The problem was sustained at home, resulted from an unknown cause. Onset: The symptoms/episode began/occurred 3 day(s) ago. Modifying factors: The symptoms are alleviated by nothing, the symptoms are aggravated by movement. Associated signs and symptoms: The patient has no apparent associated signs or symptoms. The patient has not experienced similar symptoms in the past. The patient has not recently seen a physician. 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 - Social history:: Smoking status: Patient denies any tobacco usage or history of. ROS: 15:15 Constitutional: Negative for fever, chills, and weight loss, Cardiovascular: Negative kb for chest pain, palpitations, and edema, Respiratory: Negative for shortness of breath, cough, wheezing, and pleuritic chest pain, Abdomen/GI: Negative for abdominal pain, nausea, vomiting, diarrhea, and constipation, Back: Negative for injury and pain, Skin: Negative for injury, rash, and discoloration, Neuro: Negative for headache, weakness, numbness, tingling, and seizure. 15:15 MS/extremity: Positive for pain, of the right wrist, knot. Exam: 15:15 Constitutional: This is a well developed, well nourished patient who is awake, alert, kb and in no acute distress. Head/Face: Normocephalic, atraumatic. Chest/axilla: Normal chest wall appearance and motion. Nontender with no deformity. No lesions are appreciated. Cardiovascular: Regular rate and rhythm with a normal S1 and S2. No gallops, murmurs, or rubs. Normal PMI, no JVD. No pulse deficits. Respiratory: Lungs have equal breath sounds bilaterally, clear to auscultation and percussion. No rales, rhonchi or wheezes noted. No increased work of breathing, no retractions or nasal flaring. Abdomen/GI: Soft, non-tender, with normal bowel sounds. No distension or tympany. No guarding or rebound. No evidence of tenderness throughout. Skin: Warm, dry with normal turgor. Normal color with no rashes, no lesions, and no evidence of cellulitis. Neuro: Awake and alert, GCS 15, oriented to person, place, time, and situation. Cranial nerves II-XII grossly intact. Motor strength 5/5 in all extremities. Sensory grossly intact. Cerebellar exam normal. Normal gait. 15:15 Musculoskeletal/extremity: Extremities: grossly normal except: noted in the right wrist: tenderness, ganglion cyst, ROM: limited active range of motion due to pain, in the right wrist, Circulation is intact in all extremities. Sensation intact. Vital Signs: 12:13 BP 136 / 87; Pulse 64; Resp 14; Temp 98.6(TE); Pulse Ox 95% on R/A; Weight 58.97 kg; ss Height 5 ft. 4 in. (162.56 cm); Pain 8/10; 12:13 Body Mass Index 22.31 (58.97 kg, 162.56 cm) MDM: 14:01 Patient medically screened. kb 15:15 Data reviewed: vital signs, nurses notes. Data interpreted: Pulse oximetry: on room air kb is 95 %. Interpretation: normal. 15:16 Counseling: I had a detailed discussion with the patient and/or guardian regarding: the kb historical points, exam findings, and any diagnostic results supporting the discharge/admit diagnosis, radiology results, the need for outpatient follow up, a family practitioner, to return to the emergency department if symptoms worsen or persist or if there are any questions or concerns that arise at home. 05/10 12:39 Order name: XRAY Wrist RIGHT 3 view; Complete Time: 14:02 ss 05/10 14:07 Order name: US Extrmty Nonvasular Limited; Complete Time: 14:56 kb 05/10 14:57 Order name: Gian Wrap; Complete Time: 15:06 kb Administered Medications: 14:15 Drug: Ibuprofen 600 mg Route: PO; em Disposition: 15:49 Co-signature as Attending Physician, Delonte Gurrola MD I agree with the assessment and kdr plan of care. Disposition: 05/10/20 14:57 Discharged to Home. Impression: Ganglion, right wrist - cyst. - Condition is Stable. - Discharge Instructions: Ganglion Cyst. - Medication Reconciliation Form, Thank You Letter, Antibiotic Education, Prescription Opioid Use form. - Follow up: Emergency Department; When: As needed; Reason: Worsening of condition. Follow up: Private Physician; When: 2 - 3 days; Reason: Recheck today's complaints, Continuance of care, Re-evaluation by your physician. Signatures: Dispatcher [employer] EDAysha Gutiérrez, FABRICIO-C DINKEY ENGINE FIRER/FIREMAN-Elsie Gurrola RN RN Delonte Prather MD MD [facility] Adonis Watson RN RN Lora Crowe RN RN ss Corrections: (The following items were deleted from the chart) 15:24 14:57 05/10/2020 14:57 Discharged to Home. Impression: Ganglion, right wrist - cyst. sv Condition is Stable. Forms are Medication Reconciliation Form, Thank You Letter, Antibiotic Education, Prescription Opioid Use. Follow up: Emergency Department; When: As needed; Reason: Worsening of condition. Follow up: Private Physician; When: 2 - 3 days; Reason: Recheck today's complaints, Continuance of care, Re-evaluation by your physician. kb
--- NOTE | 2020-05-10 14:58 | ER ---
Nurse's Notes [facility] Name: Marla Sneed Age: 25 yrs Sex: Female : 1995 Arrival Date: 05/10/2020 Time: 12:06 Bed 6 Private MD: Diagnosis: Ganglion, right wrist-cyst Presentation: 05/10 12:13 Chief complaint: Patient states: knot to R wrist x 2 months with intermittent pain. ss Coronavirus screen: Client denies travel out of the [place] in the last 14 days. Ebola Screen: Patient denies exposure to infectious person. Patient denies travel to an Ebola-affected area in the 21 days before illness onset. Initial Sepsis Screen: Does the patient meet any 2 criteria? No. Patient's initial sepsis screen is negative. Does the patient have a suspected source of infection? No. Patient's initial sepsis screen is negative. Risk Assessment: Do you want to hurt yourself or someone else? Patient reports no desire to harm self or others. Onset of symptoms is unknown. 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 - Social history:: Smoking status: Patient denies any tobacco usage or history of. Screenin:04 Abuse screen: Denies threats or abuse. Nutritional screening: No deficits noted. em Tuberculosis screening: No symptoms or risk factors identified. Fall Risk None identified. Assessment: 14:09 General: Appears in no apparent distress. comfortable, Behavior is calm, cooperative, em appropriate for age. Pain: Complains of pain in right wrist Pain currently is 8 out of 10 on a pain scale. Pain began 1 day ago. Neuro: Level of Consciousness is awake, alert, obeys commands, Oriented to person, place, time, situation, Appropriate for age. Cardiovascular: Capillary refill < 3 seconds Patient's skin is warm and dry. Respiratory: Airway is patent Respiratory effort is even, unlabored, Respiratory pattern is regular, symmetrical. GI: Derm: Skin is intact, is healthy with good turgor, Skin is pink, warm \T\ dry. Musculoskeletal: Capillary refill < 3 seconds, Range of motion: intact in all extremities. 14:24 Reassessment: US at bedside. em Vital Signs: 12:13 BP 136 / 87; Pulse 64; Resp 14; Temp 98.6(TE); Pulse Ox 95% on R/A; Weight 58.97 kg; Height 5 ft. 4 in. (162.56 cm); Pain 8/10; 12:13 Body Mass Index 22.31 (58.97 kg, 162.56 cm) ED Course: 12:06 Patient arrived in ED. bp1 12:14 Triage completed. ss 12:15 Arm band placed on left wrist. ss 13:04 Aysha Peterson [facility]-C [facility] kb 13:04 Delonte Gurrola MD is Attending Physician. kb 13:50 XRAY Wrist RIGHT 3 view In Process Unspecified. EDMS 14:04 Adonis Watson, RN is Primary Nurse. em 14:04 Patient has correct armband on for positive identification. Bed in low position. Call em light in reach. 14:37 US Extrmty Nonvasular Limited In Process Unspecified. EDMS 15:04 Gian wrap to right wrist. dh3 Administered Medications: 14:15 Drug: Ibuprofen 600 mg Route: PO; em Outcome: 14:57 Discharge ordered by . kb 15:24 Patient left the ED. sv Signatures: Dispatcher [employer] EDIA Aysha Peterson FNP-C FNP-Ckb Verde, Stephanie, RN RN Adonis Watson, Lora Ocasio RN, RN RN Michelle Monroe 3 Sonia Hollis bp1
[2020-05-10 16:16] VITALS: BP 136/87; TEMP 98.6; O2SAT 95
== END 2020-05-10 15:24 | disposition home or self-care (01) ==
LOC: ER 12:03
DX: M67.431 Ganglion, right wrist (principal)
CPT/HCPCS: 76882; 99283

== ENCOUNTER 2021-02-23 16:36 | Emergency (ER) | payer OTHER ==
--- OUTSIDE RECORDS SUMMARY | 2021-02-23 16:38 | XMS REPORT | Continuity of Care Document ---
:1995 Author Organization [facility] t Address [address] [place] [address] Care Team Providers Name Role Phone Elvis Reyna MD Attending Clinician Yulia GOULD Attending Clinician Problems This patient has no known problems. Allergies, Adverse Reactions, Alerts This patient has no known allergies or adverse reactions. Medications This patient has no known medications. Procedures This patient has no known procedures. Encounters Start End Encounter Admission Attending Care Care Encounter Source Date/Time Date/Time Type Type Clinicians Facility Department ID 2021-02-11 2021-02-11 Telephone Benny [facility] [id number] 00:00:00 00:00:00 ent, Jose Maria SPECIALTY [id number] [facility] [id number] CENTER AT [id number] [address] [facility] 2021-02-10 2021-02-10 Telephone BRENDEN Bender [id number] 00:00:00 00:00:00 Dona BOUCHER [id number] [facility] [id number] Results This patient has no known results.
[2021-02-23 20:08] LABS: Urine Blood 2+ (Negative); Urine Glucose Negative (Negative); Urine Protein 2+ (Negative); Urine Specific Gravity >=1.030 (1.005-1.030)
[2021-02-23] MEDS ORDERED: NA CHLORIDE 0.9% 1,000 ML ONE (20:40)
[2021-02-23] MEDS ORDERED: ONDANSETRON 4 MG/2 ML VIAL ONE (20:40)
[2021-02-23] MEDS ORDERED: MORPHINE 4 MG/ML SYR ONE (20:40)
[2021-02-23 21:03] LABS: Absolute Lymphocytes (CBC) 0.7 K/uL (0.7-4.9); Basophils % 0.2 % (0-1.3); Hematocrit 38.8 % (36.0-45.0); MPV 9.2 fL (7.6-11.3); RBC Red Blood Cell Count 4.26 M/uL (3.86-4.86)
--- NOTE | 2021-02-23 21:06 | RAD REPORT ---
EXAM DESCRIPTION: CTAbdomen Pelvis W Contrast - 02/23/2021 8:53 pm CLINICAL HISTORY: Abdominal pain. ABD PAIN COMPARISON: No comparisonsNo comparisons TECHNIQUE: Biphasic CT imaging of the abdomen and pelvis was performed with 100 ml non-ionic IV cont rast. All CT scans are performed using dose optimization technique as appropriate and may include automated exposure control or mA/KV adjustment according to patient size. FINDINGS: The lung bases are clear. No focal liver lesions are identified. Sludge versus noncalcified stones are present within the gallb ladder. Bilateral renal calculi are noted. No ureteral calculi. There is diffuse fluid filled small b owel. No definite bowel obstruction. The IUD appears out of place within the lower uterine segment. T he appendix is not confidently identified. The bladder is decompressed however the bladder wall does appear thickened. Stranding is present within the prevesical space. No suspicious bony findings. IMPRESSION: Nonspecific fluid filled small bowel and colon could represent a mild enterocolitis. The IUD appears to be within the lower uterine segment, out of place. It needs to be removed and/or r epositioned. Nonobstructive nephrolithiasis.
[2021-02-23 21:16] LABS: Albumin 3.2 g/dL (3.4-5.0); Bilirubin Direct 0.2 mg/dL (0-0.2); Bilirubin Total 0.8 mg/dL (0.2-1.0); Potassium 3.1 mmol/L (3.5-5.1); Protein, Total 7.6 g/dL (6.4-8.2)
[2021-02-23 21:28] LABS: Urine Specific Gravity/Preg >1.030 (1.005-1.030)
[2021-02-23 21:57] LABS: Urine Bacteria <20 /HPF (<20); Urine RBC <5 /HPF (NONE SEEN)
--- NOTE | 2021-02-23 22:11 | ER ---
Nurse's Notes [facility] Name: Marla Sneed Age: 25 yrs Sex: Female : 1995 Arrival Date: 02/23/2021 Time: 16:37 Bed 11 Private MD: Diagnosis: Urinary tract infection. Gastroenteritis. IUD displaced Presentation: 02/23 16:46 Chief complaint: Patient states: Epigastric, left and right lower abdominal pain x 2 jl7 days, went to [facility] yesterday and they did a CT, blood work and urine but didn't find anything. The prescribed Zofran but I'm not nauseous or anything, denies N/V/D, last BM Wednesday and normal; denies burning and pain with urination. Coronavirus screen: Client denies travel out of the [place] in the last 14 days. At this time, the client does not indicate any symptoms associated with coronavirus-19. Ebola Screen: No symptoms or risks identified at this time. Initial Sepsis Screen: Does the patient meet any 2 criteria? No. Patient's initial sepsis screen is negative. Does the patient have a suspected source of infection? No. Patient's initial sepsis screen is negative. Risk Assessment: Do you want to hurt yourself or someone else? Patient reports no desire to harm self or others. Onset of symptoms was February 21, 2021. 16:46 Method Of Arrival: Wheelchair [facility] 16:46 Acuity: HALEIGH 3 7 FIELD RECORDER: 16:51 LMP 02/22/2021 [facility] Historical: - Allergies: 16:51 No Known Allergies; jl7 - Home Meds: 16:51 None [Active]; jl7 - PMHx: 16:51 None; jl7 - Immunization history:: Adult Immunizations not up to date, Client reports having NOT received the Covid vaccine. - Social history:: Smoking status: Patient denies any tobacco usage or history of. Screenin:00 Abuse screen: Denies threats or abuse. Nutritional screening: No deficits noted. bb Tuberculosis screening: No symptoms or risk factors identified. Fall Risk None identified. Assessment: 20:00 General: Appears in no apparent distress. slender, Behavior is calm, cooperative. Pain: bb Complains of pain in abdomen. Neuro: Level of Consciousness is awake, alert, obeys commands, Oriented to person, place, time, situation. Cardiovascular: Capillary refill < 3 seconds Patient's skin is warm and dry. Respiratory: Respiratory effort is even, unlabored, Respiratory pattern is regular. GI: Bowel sounds present X 4 quads. Abd is soft X 4 quads. Derm: Skin is dry, Skin is normal, Skin temperature is warm. Musculoskeletal: Circulation, motion, and sensation intact. 22:20 Reassessment: Patient is alert, oriented x 3, equal unlabored respirations, skin bb warm/dry/pink. verbalized understanding of and agrees to plan of care discharge instructions given pt ambulated with steady gait to exit accompanied by family. Vital Signs: 16:46 BP 111 / 85; Pulse 129; Resp 17; Temp 98.6(O); Pulse Ox 100% ; Weight 52.16 kg; Height jl7 5 ft. 4 in. (162.56 cm); Pain 5/10; 22:25 BP 126 / 73 LA Sitting (auto/reg); Pulse 91; Resp 18; Temp 98.1(TE); Pulse Ox 98% on tt3 R/A; Pain 0/10; 16:46 Body Mass Index 19.74 (52.16 kg, 162.56 cm) jl7 ED Course: 16:37 Patient arrived in ED. as 16:51 Triage completed. jl7 16:51 Arm band placed on right wrist. jl7 19:42 Stewart Mulligan MD is Attending Physician. pkl 20:00 Patient has correct armband on for positive identification. Call light in reach. Side bb rails up X2. Adult w/ patient. Warm blanket given. 20:36 Isha Carrera, LIZZY is Primary Nurse. bb 20:53 CT Abd/Pelvis - IV Contrast Only In Process Unspecified. EDMS 21:30 Initial lab(s) drawn, by me, sent to lab. Inserted saline lock: 20 gauge in right bb antecubital area, using aseptic technique. Blood collected. 22:20 No provider procedures requiring assistance completed. bb 22:31 IV discontinued, intact, bleeding controlled, No redness/swelling at site. Pressure bb dressing applied. Administered Medications: 20:30 Drug: NS 0.9% 1000 ml Route: IV; Rate: 1000 ml; Site: right antecubital; bb 21:30 Follow up: IV Status: Completed infusion; IV Intake: 1000ml bb 20:30 Drug: Zofran (Ondansetron) 4 mg Route: IVP; Site: right antecubital; bb 21:30 Follow up: Response: No adverse reaction bb 20:33 Drug: morphine 4 mg {Note: RASS 0.} Route: IVP; Site: right antecubital; bb 21:30 Follow up: Response: No adverse reaction; Pain is decreased bb 22:15 CANCELLED (Physician Discretion): NS 0.9% 1000 ml IV at 125 ml/hr continuous bb 22:15 Drug: Cipro (ciprofloxacin) 500 mg Route: PO; bb 22:17 Follow up: Response: Medication administered at discharge. bb 22:15 Drug: K-Dur (potassium chloride) 40 mEq Route: PO; bb 22:17 Follow up: Response: Medication administered at discharge. bb Intake: 21:30 IV: 1000ml; Total: 1000ml. bb Outcome: 22:11 Discharge ordered by . gina 22:31 Discharged to home ambulatory, with family. bb 22:31 Condition: stable 22:31 Discharge instructions given to patient, Instructed on discharge instructions, follow up and referral plans. medication usage, Demonstrated understanding of instructions, follow-up care, medications, Prescriptions given X 1. 22:31 Patient left the ED. bb Signatures: Dispatcher [employer] Stewart Escalera MD MD pkl Martinez, Amelia as Ballard, Brenda, RN RN Nolberto Garcia RN RN jl7 Jennifer, Mario tt3
--- NOTE | 2021-02-23 22:12 | EDPHYS ---
Physician Documentation [facility] Name: Marla Sneed Age: 25 yrs Sex: Female : 1995 Arrival Date: 02/23/2021 Time: 16:37 Bed 11 Private MD: ED Physician Stewart Mulligan HPI: 02/23 19:59 This 25 yrs old Black Female presents to ER via Wheelchair with complaints of Abdominal pkl Pain. 19:59 The patient presents with abdominal pain in the lower abdomen. Onset: The pkl symptoms/episode began/occurred 2 day(s) ago. The symptoms do not radiate. Associated signs and symptoms: none. Patient seen at [facility] ) yesterday, Had CT Scan, blood and urine tests. Told tests checked out good. Patient said pain not better. 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 - Social history:: Smoking status: Patient denies any tobacco usage or history of. ROS: 19:59 Eyes: Negative for injury, pain, redness, and discharge, ENT: Negative for injury, pkl pain, and discharge, Neck: Negative for injury, pain, and swelling, Cardiovascular: Negative for chest pain, palpitations, and edema, Respiratory: Negative for shortness of breath, cough, wheezing, and pleuritic chest pain. 19:59 Abdomen/GI: Positive for abdominal pain, of the right lower quadrant and left lower quadrant. 19:59 Back: Negative for acute changes. 19:59 : Negative for urinary symptoms. 19:59 MS/extremity: Negative for acute changes. 19:59 Skin: Negative for rash. 19:59 Neuro: Negative for altered mental status, loss of consciousness. Exam: 19:59 Head/Face: Normocephalic, atraumatic. Eyes: Pupils equal round and reactive to light, pkl extra-ocular motions intact. Lids and lashes normal. Conjunctiva and sclera are non-icteric and not injected. Cornea within normal limits. Periorbital areas with no swelling, redness, or edema. ENT: Nares patent. No nasal discharge, no septal abnormalities noted. Tympanic membranes are normal and external auditory canals are clear. Oropharynx with no redness, swelling, or masses, exudates, or evidence of obstruction, uvula midline. Mucous membranes moist. Neck: Trachea midline, no thyromegaly or masses palpated, and no cervical lymphadenopathy. Supple, full range of motion without nuchal rigidity, or vertebral point tenderness. No Meningismus. Chest/axilla: Normal chest wall appearance and motion. Nontender with no deformity. No lesions are appreciated. Cardiovascular: Regular rate and rhythm with a normal S1 and S2. No gallops, murmurs, or rubs. Normal PMI, no JVD. No pulse deficits. Respiratory: Lungs have equal breath sounds bilaterally, clear to auscultation and percussion. No rales, rhonchi or wheezes noted. No increased work of breathing, no retractions or nasal flaring. 19:59 Abdomen/GI: Bowel sounds: normal, Palpation: soft, mild abdominal tenderness, in the right lower quadrant and left lower quadrant. 19:59 Back: Exam negative for acute changes. 19:59 : Exam negative for acute changes. 19:59 Musculoskeletal/extremity: Exam is negative for acute changes. 19:59 Skin: Exam negative for rash. 19:59 Neuro: Orientation: is normal, Mentation: is normal, Cranial nerves: grossly normal, Motor: is normal. Vital Signs: 16:46 BP 111 / 85; Pulse 129; Resp 17; Temp 98.6(O); Pulse Ox 100% ; Weight 52.16 kg; Height jl7 5 ft. 4 in. (162.56 cm); Pain 5/10; 22:25 BP 126 / 73 LA Sitting (auto/reg); Pulse 91; Resp 18; Temp 98.1(TE); Pulse Ox 98% on tt3 R/A; Pain 0/10; 16:46 Body Mass Index 19.74 (52.16 kg, 162.56 cm) jl7 MDM: 19:42 Patient medically screened. pkl 22:06 Data reviewed: vital signs, nurses notes, lab test result(s), radiologic studies, CT pkl scan. ED course: Patient feeling better. Discussed lab and CT Scan results with patient. Advised to follow up with PCP and Ob- Licensing Officer in 2 to 3 days. Patient understood instructions. 02/23 19:55 Order name: Basic Metabolic Panel; Complete Time: 21:25 pkl 02/23 19:55 Order name: CBC with Diff; Complete Time: 21:17 pkl 02/23 19:55 Order name: Hepatic Function; Complete Time: 21:25 pkl 02/23 19:55 Order name: Lipase; Complete Time: 21:25 pkl 02/23 20:08 Order name: Urine Dipstick-Ancillary; Complete Time: 21:17 EDMS 02/23 20:11 Order name: Urine --Ancillary (enter results) tt3 02/23 20:10 Order name: CT Abd/Pelvis - IV Contrast Only; Complete Time: 21:17 pkl 02/23 20:12 Order name: Urine --Ancillary; Complete Time: 21:55 EDMS 02/23 21:31 Order name: Urine Microscopic Only; Complete Time: 22:00 tt3 02/23 21:31 Order name: Urine Culture tt3 02/23 19:55 Order name: IV Saline Lock; Complete Time: 20:37 pkl 02/23 19:55 Order name: Labs collected and sent; Complete Time: 20:37 pkl 02/23 19:55 Order name: Urine Dipstick-Ancillary (obtain specimen); Complete Time: 20:44 pkl Administered Medications: 20:30 Drug: NS 0.9% 1000 ml Route: IV; Rate: 1000 ml; Site: right antecubital; bb 21:30 Follow up: IV Status: Completed infusion; IV Intake: 1000ml bb 20:30 Drug: Zofran (Ondansetron) 4 mg Route: IVP; Site: right antecubital; bb 21:30 Follow up: Response: No adverse reaction bb 20:33 Drug: morphine 4 mg {Note: RASS 0.} Route: IVP; Site: right antecubital; bb 21:30 Follow up: Response: No adverse reaction; Pain is decreased bb 22:15 CANCELLED (Physician Discretion): NS 0.9% 1000 ml IV at 125 ml/hr continuous bb 22:15 Drug: Cipro (ciprofloxacin) 500 mg Route: PO; bb 22:17 Follow up: Response: Medication administered at discharge. bb 22:15 Drug: K-Dur (potassium chloride) 40 mEq Route: PO; bb 22:17 Follow up: Response: Medication administered at discharge. bb Disposition Summary: 02/23/21 22:11 Discharge Ordered Location: Home pkl Problem: new pkl Symptoms: have improved pkl Condition: Stable pkl Diagnosis - Urinary tract infection. Gastroenteritis. IUD displaced pkl Followup: pkl - With: Private Physician - When: 2 - 3 days - Reason: Re-evaluation by your physician Discharge Instructions: - Discharge Summary Sheet pkl Forms: - Medication Reconciliation Form pkl - Thank You Letter pkl - Antibiotic Education pkl - Prescription Opioid Use pkl Prescriptions: - Cipro 500 mg Oral Tablet - take 1 tablet by ORAL route every 12 hours for 5 days; 10 tablet; Refills: 0, pkl Product Selection Permitted Signatures: Dispatcher [employer] EDMS Stewart Mulligan MD MD pkl Isha Carrera RN RN bb Nolberto Cardona RN RN jl7 Corrections: (The following items were deleted from the chart) 22:15 19:55 NS 0.9% 1000 ml IV at 125 ml/hr continuous ordered. pkl bb 22:15 22:15 NS 0.9% 1000 ml IV at 125 ml/hr continuous ordered. bb bb
[2021-02-23] MEDS ORDERED: POTASSIUM CL SA 10 MEQ TAB PO ONE (22:35)
[2021-02-23] MEDS ORDERED: CIPROFLOXACIN HCL 500 MG TAB ONE (22:35)
[2021-02-23 22:42] VITALS: BP 126/73; TEMP 98.1; O2SAT 98
== END 2021-02-23 22:31 | disposition home or self-care (01) ==
LOC: ER 16:36
DX: N39.0 Urinary tract infection, site not specified (principal); K52.9 Noninfective gastroenteritis and colitis, unspecified; T83.32XA Displacement of intrauterine contraceptive device, initial encounter
CPT/HCPCS: 96361; 87088; 85025; 87086; 80048; 36415; 81025; 82565; 80076; 83690; 74177; 96375; 96374; 99284; Q9967; J7030; J2405; 81003; 81015